=== PATIENT | male | born 2000 | race African-American/Black ===

== ENCOUNTER 2020-05-02 11:36 | Emergency (ER) | payer OTHER ==
[~2020-05-02] VITALS: Ht 172.7 cm; Wt 74.8 kg
[2020-05-02 12:55] VITALS: BP 138/82; TEMP 98.7
== END 2020-05-02 12:58 | disposition home or self-care (01) ==
LOC: ED 11:36
DX: S93.492A Sprain of other ligament of left ankle, initial encounter (principal); W17.2XXA Fall into hole, initial encounter; Y92.89 Other specified places as the place of occurrence of the external cause
CPT/HCPCS: 96372; 99282; 99283; J1885